=== PATIENT | female | born 1950 | race Caucasian/White ===

== ENCOUNTER → 2016-06-29 | Outpatient (CLI) | payer OTHER ==
--- NOTE | 2016-06-30 13:46 | MM ---
Reason for exam: screening (asymptomatic). Last mammogram was performed 1 year and 1 month ago. History: Patient is postmenopausal and is nulliparous. Family history of breast cancer in sister at age 58. Took estrogen for 12 years. Physical Findings: A clinical breast exam by your physician is recommended on an annual basis and results should be correlated with mammographic findings. MG Screening Mammo w CAD Bilateral CC and MLO view(s) were taken. Prior study comparison: June 14, 2015, bilateral MG screening mammo w CAD. May 22, 2014, mammogram, performed at [place]. May 16, 2013, mammogram, performed at [place]. The breast tissue is heterogeneously dense. This may lower the sensitivity of mammography. Questionable architectural distortion lateral left breast versus summation density. ASSESSMENT: Incomplete: need additional imaging evaluation, BI-RAD 0 RECOMMENDATION: Special view mammogram of the left breast. If lesion persists on supplemental views, image directed ultrasound is recommended. [facility] will attempt to contact patient to return for supplemental views and ultrasound if indicated. DOMINGUEZ
== END | disposition home or self-care (01) ==
LOC: RADMAMWWP 11:20
PROVIDERS: ATTEND Family Medicine
DX: Z12.31 Encounter for screening mammogram for malignant neoplasm of breast (principal)

== ENCOUNTER → 2016-07-08 | Outpatient (CLI) | payer OTHER ==
--- NOTE | 2016-07-08 14:21 | MM ---
Reason for exam: additional evaluation requested from abnormal screening. Last mammogram was performed less than 1 month ago. History: Patient is postmenopausal and is nulliparous. Family history of breast cancer in sister at age 58. Took estrogen for 12 years. Physical Findings: Nurse did not find any significant physical abnormalities on exam. MG Work Up Mamm w CAD LT LM, spot compression CC, and spot compression XCCL view(s) were taken of the left breast. Prior study comparison: June 29, 2016, bilateral MG screening mammo w CAD. June 14, 2015, bilateral MG screening mammo w CAD. May 22, 2014, mammogram, performed at [place]. The breast tissue is heterogeneously dense. This may lower the sensitivity of mammography. There is persistence of questionable distortion upper outer quadrant in the left breast on additional view. These results were verbally communicated with the patient and result sheet given to the patient on 07/08/16. ASSESSMENT: Incomplete: need additional imaging evaluation, BI-RAD 0 RECOMMENDATION: Ultrasound of the left breast. (upper outer quadrant)
--- NOTE | 2016-07-08 14:23 | USB ---
Reason for exam: additional evaluation requested from abnormal screening. History: Patient is postmenopausal and is nulliparous. Family history of breast cancer in sister at age 58. Took estrogen for 12 years. US Breast Workup Limited LT Left breast ultrasound demonstrates no cystic or solid lesion seen. The mammographic finding can be reassessed in 6 months. These results were verbally communicated with the patient and result sheet given to the patient on 07/08/16. ASSESSMENT: Probably benign, BI-RAD 3 RECOMMENDATION: Follow-up diagnostic mammogram of the left breast in 6 months.
== END | disposition home or self-care (01) ==
LOC: RADMAMWWP 13:21
PROVIDERS: ATTEND Family Medicine
DX: R92.8 Other abnormal and inconclusive findings on diagnostic imaging of breast (principal); Z80.3 Family history of malignant neoplasm of breast
CPT/HCPCS: 76642; G0206

== ENCOUNTER → 2016-12-30 | Outpatient (CLI) | payer MEDICARE ==
--- NOTE | 2016-12-30 11:40 | MM ---
Reason for exam: follow-up at short interval from prior study. Last mammogram was performed 6 months ago. History: Patient is postmenopausal and is nulliparous. Family history of breast cancer in sister at age 58. Took estrogen for 12 years. Physical Findings: Nurse did not find any significant physical abnormalities on exam. MG 3D Diag Mammo W/Cad LT CC, MLO, and ML view(s) were taken of the left breast. Prior study comparison: July 08, 2016, left breast MG work up mamm w CAD LT. June 29, 2016, bilateral MG screening mammo w CAD. The breast tissue is heterogeneously dense. This may lower the sensitivity of mammography. Persistent upper outer quadrant left architectural distortion is unchanged and likely due to remote excision. No new mass. These results were verbally communicated with the patient and result sheet given to the patient on 12/30/16. ASSESSMENT: Probably benign, BI-RAD 3 RECOMMENDATION: Follow-up diagnostic mammogram of both breasts in 6 months. Back on schedule.
== END | disposition home or self-care (01) ==
LOC: RADMAMWWP 10:39
PROVIDERS: ATTEND Family Medicine
DX: R92.8 Other abnormal and inconclusive findings on diagnostic imaging of breast (principal)
CPT/HCPCS: G0206; G0279

== ENCOUNTER → 2017-07-01 | Outpatient (CLI) | payer MEDICARE ==
--- NOTE | 2017-07-01 11:13 | MM ---
Reason for exam: follow-up at short interval from prior study. Last mammogram was performed 6 months ago. History: Patient is postmenopausal and is nulliparous. Family history of breast cancer in sister at age 58. Benign excisional biopsy of the left breast, 1989. Took estrogen for 12 years. Physical Findings: Nurse did not find any significant physical abnormalities on exam. MG 3D Diag Mammo W/Cad [facility] Bilateral CC and MLO view(s) were taken. Prior study comparison: December 30, 2016, left breast MG 3d diag mammo w/cad LT. July 08, 2016, left breast MG work up mamm w CAD LT. June 14, 2015, bilateral MG screening mammo w CAD. May 22, 2014, mammogram, performed at [place]. Lateral left breast asymmetry no longer seen. No significant new findings when compared with previous films. These results were verbally communicated with the patient and result sheet given to the patient on 07/01/17. ASSESSMENT: Negative, BI-RAD 1 RECOMMENDATION: Routine screening mammogram of both breasts in 1 year.
== END | disposition home or self-care (01) ==
LOC: RADMAMWWP 09:52
PROVIDERS: ATTEND Family Medicine
DX: R92.8 Other abnormal and inconclusive findings on diagnostic imaging of breast (principal)
CPT/HCPCS: 77066; G0279

== ENCOUNTER → 2018-07-27 | Outpatient (CLI) | payer MEDICARE ==
--- NOTE | 2018-07-28 13:57 | MM ---
Reason for exam: screening (asymptomatic). Last mammogram was performed 1 year and 1 month ago. History: Patient is postmenopausal and is nulliparous. Family history of breast cancer in sister at age 58. Benign excisional biopsy of the left breast, 1989. Took estrogen for 12 years. Physical Findings: A clinical breast exam by your physician is recommended on an annual basis and results should be correlated with mammographic findings. MG 3D Screening Mammo W/Cad Bilateral CC and MLO view(s) were taken. Prior study comparison: July 01, 2017, bilateral MG 3d diag mammo w/cad [facility]. December 30, 2016, left breast MG 3d diag mammo w/cad LT. The breast tissue is extremely dense which could obscure a lesion on mammography. Benign appearing bilateral calcifications. No suspicious abnormality. Post surgical change on the left. No significant changes when compared with prior studies. ASSESSMENT: Benign, BI-RAD 2 RECOMMENDATION: Routine screening mammogram of both breasts in 1 year.
== END | disposition home or self-care (01) ==
LOC: RADMAMWWP 09:48
PROVIDERS: ATTEND Family Medicine
DX: Z12.31 Encounter for screening mammogram for malignant neoplasm of breast (principal)
CPT/HCPCS: 77063; 77067

== ENCOUNTER 2018-08-01 08:39 | Day surgery (SDC) | payer MEDICARE ==
[2018-07-27 15:36] VITALS: BMI 20.9
[~2018-08-01 08:39] MED LIST: LACTATED RINGERS 1,000 ML IV SCH; LIDOCAINE 1% 20 ML VIAL (10MG/ML) FOR IV START INTRADERMA PRN
[2018-08-01 09:01] VITALS: RESP 16; TEMP 97.4
[2018-08-01] MEDS ORDERED: MIDAZOLAM 2 MG/2 ML VIAL ONE (09:50)
[2018-08-01] MEDS ORDERED: PROPOFOL 10 MG/ML 20 ML VIAL IV ONE (09:50)
[2018-08-01] MEDS ORDERED: LIDOCAINE 1% INJ 10MG/ML (20 ML MDV) ONE (09:50)
--- NOTE | 2018-08-01 10:33 | P.PCN ---
Date of Procedure: 08/01/18 Procedure(s) Performed: Procedure: Colonoscopy and biopsy. Preoperative diagnosis: History of colitis with recent exacerbation of symptoms. Postoperative diagnosis: 1. Mild scattered edema and erythema of the colon with no significant other findings or bleeding. 2. Biopsies obtained from the terminal ileum and randomly from the colon. Preparation: HalfLytely prep. Sedation: Was provided by anesthesia. Brief clinical history: The patient is 67-year-old female with history of colitis that was diagnosed more than 8 years ago. She has required steroids and Remicade in the past. She has lived in [place] and in [place] in the past. She moved to this area around 4 years ago she was in remission on no medications. She, apparently, has been troubled with diarrhea and urgent bowel movements for the last 4-5 months and has required Entocort therapy until 1 week ago. She has been doing well for the last week. Procedure: With the patient on her left lateral decubitus position and after informed consent and adequate sedation, the perianal area was inspected and it did not show any fissures or fistulas. There were no masses felt on digital rectal examination. The Olympus CFH 190L video colonoscope was then inserted in the rectum in the usual fashion and advanced to the cecum. I intubated the ileocecal valve and examined the terminal ileum. Terminal ileum and colon appeared healthy with the only finding of patches of mild edema and erythema in the colon more so on the right side with no ulceration, exudation or spontaneous bleeding. No polyps or tumors were seen or any obvious diverticular disease or other pathology. I obtained biopsies from the terminal ileum and randomly from the colon then I retroflexed the endoscope in the rectum before the endoscope was withdrawn. The patient tolerated the procedure well. Plan: The patient was reassured. Will await pathology results. She will follow-up with you as planned and further plans will be made based on her course and biopsy results. I will be happy to see in the office of her symptoms recur.
[2018-08-01 10:39] VITALS: BP 118/74; PULSE 72
== END 2018-08-01 11:16 | disposition home or self-care (01) ==
LOC: ORWHC2ENDO 08:39
DX: K52.9 Noninfective gastroenteritis and colitis, unspecified (principal); I10 Essential (primary) hypertension; G43.909 Migraine, unspecified, not intractable, without status migrainosus; Z87.891 Personal history of nicotine dependence; E07.9 Disorder of thyroid, unspecified; Z79.890 Hormone replacement therapy; Z79.899 Other long term (current) drug therapy
CPT/HCPCS: 88305; 45380; J2250; J2001; J2704

== ENCOUNTER → 2019-03-30 | Outpatient (CLI) | payer MEDICARE ==
--- NOTE | 2019-03-30 11:38 | MM ---
Reason for exam: clinical finding. Last mammogram was performed 8 months ago. History: Patient is postmenopausal and is nulliparous. Family history of breast cancer in sister at age 58. Benign excisional biopsy of the left breast, 1989. Took estrogen for 12 years. Physical Findings: Nurse did not find any significant physical abnormalities on exam. MG 3D Diag Mammo W/Cad LT CC and MLO view(s) were taken of the left breast. Prior study comparison: July 27, 2018, bilateral MG 3d screening mammo w/cad. July 01, 2017, bilateral MG 3d diag mammo w/cad [facility]. The breast tissue is heterogeneously dense. This may lower the sensitivity of mammography. Benign appearing calcifications in the left breast. No suspicious abnormality. Post excisional change on the left. These results were verbally communicated with the patient and result sheet given to the patient on 03/30/19. ASSESSMENT: Benign, BI-RAD 2 RECOMMENDATION: Return to routine screening mammogram schedule for both breasts. Back on schedule for June 2019. Manage patient on a clinical basis.
== END | disposition home or self-care (01) ==
LOC: RADMAMWWP 10:12
PROVIDERS: ATTEND Family Medicine
DX: N64.4 Mastodynia (principal)
CPT/HCPCS: 77061; 77065

== ENCOUNTER → 2019-10-23 | Outpatient (CLI) | payer MEDICARE ==
--- NOTE | 2019-10-23 12:15 | CT ---
EXAMINATION TYPE: CT orbits wo con DATE OF EXAM: 10/23/2019 COMPARISON: None HISTORY: Thyrotoxicosis w/diffuse goiter w/out CT DLP: 404 mGycm Automated exposure control for dose reduction was used. Unenhanced CT of the orbits was performed in the axial and coronal planes with bone and soft tissue window settings submitted. FINDINGS: There is severe bilateral proptosis measuring 22 mm on the right and 21 mm on the left with measureme nt from the interzygomatic line to the posterior sclera. Mild thickening of the bellies of the medial rectus musculature. The remaining extraocular musculature and does not appear to be thickened. No ev idence for intra or extraconal mass. Optic nerves appear symmetric. Paranasal sinuses are unremarkabl e. IMPRESSION: BILATERAL SEVERE PROPTOSIS NOTED.
== END | disposition home or self-care (01) ==
LOC: RADCTMAIN 11:33
PROVIDERS: ATTEND Ophthalmology Ophthalmic Plastic and Reconstructive Surgery
DX: H05.20 Unspecified exophthalmos (principal); E05.00 Thyrotoxicosis with diffuse goiter without thyrotoxic crisis or storm
CPT/HCPCS: 70480

== ENCOUNTER → 2020-07-19 | Outpatient (CLI) | payer MEDICARE ==
--- NOTE | 2020-07-19 14:28 | US ---
EXAMINATION TYPE: US axilla LT DATE OF EXAM: 07/19/2020 COMPARISON: NONE CLINICAL HISTORY: L04.9 Lymphadenitis. Left axilla palpable and painful area x 3 weeks, covid vaccine left arm 8 weeks ago Left axilla: 2.0 x 0.7 x 0.9cm lymph node seen IMPRESSION: Mildly prominent left axillary lymph node.
== END | disposition home or self-care (01) ==
LOC: RADUSWWP 13:31
PROVIDERS: ATTEND Family Medicine
DX: R59.0 Localized enlarged lymph nodes (principal)

== ENCOUNTER → 2020-08-09 | Outpatient (CLI) | payer MEDICARE ==
--- NOTE | 2020-08-09 10:14 | US ---
EXAMINATION TYPE: US axilla LT DATE OF EXAM: 08/09/2020 COMPARISON: 07/19/2020 CLINICAL HISTORY: L04.9 Lymphadenitis. left axilla palpable for 6 weeks. covid vaccine left arm 11 w eeks ago. prior exam 07/19/20 lymph nodes left axilla with largest = 1.9 x 0.8 x 1.3cm There has been no interval change in the mildly prominent left axillary lymph node. No new abnormalit y seen. IMPRESSION: No change in the mildly prominent left axillary lymph node.
== END | disposition home or self-care (01) ==
LOC: RADUSWWP 09:26
PROVIDERS: ATTEND Family Medicine
DX: R59.0 Localized enlarged lymph nodes (principal)

== ENCOUNTER → 2020-09-20 | Outpatient (CLI) | payer MEDICARE ==
--- NOTE | 2020-09-25 11:15 | MM ---
Reason for exam: screening (asymptomatic). Last mammogram was performed 1 year and 6 months ago. History: Patient is postmenopausal and is nulliparous. Family history of breast cancer in sister at age 58. Benign excisional biopsy of the left breast, 1989. Took estrogen for 12 years. Physical Findings: A clinical breast exam by your physician is recommended on an annual basis and results should be correlated with mammographic findings. MG 3D Screening Mammo W/Cad Bilateral CC and MLO view(s) were taken. Prior study comparison: March 30, 2019, left breast MG 3d diag mammo w/cad LT. July 27, 2018, bilateral MG 3d screening mammo w/cad. The breast tissue is heterogeneously dense. This may lower the sensitivity of mammography. Benign calcifications bilaterally. ASSESSMENT: Benign, BI-RAD 2 RECOMMENDATION: Routine screening mammogram of both breasts in 1 year.
== END | disposition home or self-care (01) ==
LOC: RADMAMWWP 13:29
PROVIDERS: ATTEND Family Medicine
DX: Z12.31 Encounter for screening mammogram for malignant neoplasm of breast (principal)
CPT/HCPCS: 77063; 77067

== ENCOUNTER → 2021-12-09 | Outpatient (CLI) | payer MEDICARE ==
--- NOTE | 2021-12-09 11:58 | BD ---
EXAMINATION TYPE: Axial Bone Density DATE OF EXAM: 12/09/2021 COMPARISON: NONE CLINICAL HISTORY: 71 years year old Female. ICD-10 CODE: Z78.0 ASYMPTOMATIC MENOPAUSAL STATE Height: 5'6 Weight: 128 FRAX RISK QUESTIONS: History of Fracture in Adulthood: y Secondary Osteoporosis: 3. Menopause before 45: y Rheumatoid Arthritis: y RISK FACTORS HISTORY OF: Surgery to Spine: c3-4 When: 2011 Postmenopausal woman: MEDICATIONS: Thyroid Medications: Which medication: Synthroid How Lon years Additional Medications: depression, muscle relaxer, migraines, sleep, Additional History: EXAM MEASUREMENTS: Bone mineral densitometry was performed using the [employer] System. Bone mineral density as measured about the Lumbar spine is: ----- L1-L4(G/cm2): 1.322 T Score Values are as follows: ----- L1: -1.1 ----- L2: 2.5 ----- L3: 4.2 ----- L4: -0.8 ----- L1-L4: 1.2 Bone mineral density about the R hip (g/cm2): 0.828 Bone mineral density about the L hip (g/cm2): 0.852 T Score values are as follow -----R Neck: -1.5 -----L Neck: -1.3 -----R Total: -1.4 -----L Total: -1.2 FRAX%s: The graph provided illustrates a 14.1% chance for a major osteoporotic fx and a 2.2% chance f or the hips probability for fx in 10 years time IMPRESSION: Osteopenia (T Score between -2.5 and -1). There is slightly increased risk of fracture and the patient may be considered for treatment. Re-Screen 2-5 years. NOTE: T-SCORE=SD OF THE YOUNG ADULT MEAN.
== END | disposition home or self-care (01) ==
LOC: RADBDWWP 08:57
PROVIDERS: ATTEND Family Medicine
DX: Z12.31 Encounter for screening mammogram for malignant neoplasm of breast (principal); Z78.0 Asymptomatic menopausal state
CPT/HCPCS: 77063; 77067; 77080

== ENCOUNTER → 2022-09-30 | Outpatient (CLI) | payer MEDICARE ==
--- NOTE | 2022-09-30 16:07 | P.SLEEP ---
History of Present Illness DATE: 09/30/2022 CONSULTATION/NEW PATIENT EVALUATION HISTORY OF PRESENT ILLNESS/SLEEP-WAKE EVALUATION: 72-year-old lady had been ev aluated in the sleep center for insomnia. SLEEP SCHEDULE: Usually sleep schedule patient usually goes to bed around 9:30, falling asleep around 11 and get out of bed in the morning at 8 AM. FALLING ASLEEP: Patient has difficulties with the falling to sleep. No TV in bedroom. DURING SLEEP: Patient usually sleeps on the side position by himself, no information about snoring, according to patient no history of snoring. Patient wakes up from sleep up to 4 times with nocturia. No history of hypnogogical hallucinations, sleep paralysis, or cataplexy. DURING THE DAY/WAKE STATE: Patient orally about his sleep. [place] sleepiness scale is 0. Patient doesn't take any naps. PAST MEDICAL HISTORY: Hypertension, hypothyroidism, headaches some of them started in the morning after awakenings from sleep, anxiety, hypothyroidism. PAST SURGICAL HISTORY: C3-C4 laminectomy with fusion, radioactive iodine treatment. MEDICATIONS: Hydrochlorothiazide 25 mg once a day, Synthroid 88 g once a day, T rileptal 1 at bedtime, Valium 5 mg once a day, Imitrex 50 mg once a day. SOCIAL HISTORY: Positive history of smoking in the past quit more than 20 years ago, alcohol consumption occasional. FAMILY HISTORY: Hypertension, heart problems, stroke, asthma, cancer, restless leg symptoms. REVIEW OF SYSTEMS: Difficulties to initiate sleep, multiple awakenings from sleep. No fevers. No double vision. No recent chest pain. No shortness of breath. No abdominal pain. No bleeding episodes. No blood in urine. No seizure episodes. PHYSICAL EXAMINATION: GENERAL: A pleasant patient without any distress. VITAL SIGNS: BP 167/85, HR 61, RR 16, weight 133.6 pounds, height 5 foot 5.25 inches, body mass index 21.9. HEENT: PERRLA, EOMI. Evaluation of oropharynx showed tongue protrudes midline, low position of soft palate Mallampati 2, distance between soft palate and posterior pharyngeal wall. Retrognathia about 3 mm. NECK: Supple. No JVD. Thyroid is not palpable. 14 inches in circumference. LUNGS: Clear to percussion and to auscultation. Good air exchange. No wheezing or rhonchi. HEART: S1, S2 regular. No murmurs, gallops or rubs. ABDOMEN: Soft and nontender. Bowel sounds are present. No organomegaly appreciated. EXTREMITIES: No clubbing or cyanosis. DRAMATIC COACH: Awake, alert, and oriented x3. Cranial nerves 2 to 7 intact. There is no fasciculation or atrophy noted. No focal deficits observed. ASSESSMENT: 1. Difficulties to initiate sleep, psychophysiological insomnia and insomnia secondary to anxiety. 2. Multiple awakenings from sleep, retrognathia, slightly small oropharyngeal airspace. Possible obstructive sleep apnea hypopnea syndrome. 3. Hypertension. 4. Headaches, some after awakenings from sleep. 5 hypothyroidism secondary to treatment with radioactive iodine. 6 . Anxiety. 7. Status post C3-C4 laminectomy with fusion. PLAN: 1. I discussed with patient psychological techniques for treatment of insomnia including stimulus control, paradoxical intentione, worry time. Patient will arrange sleep schedule time of staying in bed for around 7-1/2 hours, presently she is staying in bed for about 10.5 hours. No watching clock. 2. No any caffeine during the day 3. I explained to the patient necessity to proceed with the polysomnogram for evaluation of her breathing during the sleep. For patient with insomnia home sleep apnea test will not be reliable choice of evaluation for JASON. 4. No driving if patient feels any sleepiness. 5. Sleep hygiene with regular sleep time for 7.5 hours. 6. Follow-up visit in several months. Thank you very much for referring this patient for consultation. Sincerely, Maury Marie MD, PhD, FAASM. Diplomat of [place] [employer], Sleep Medicine Board by [place] [employer] [place] [employer] [facility] [place] Medications and Allergies Home Medications Medication Instructions Recorded Confirmed Type Butalb/Acetaminophen/Caffeine 1 - 2 cap PO Q4HR PRN 07/27/18 08/01/18 History [Fioricet 50-300-40 mg Capsule] Escitalopram [Lexapro] 10 mg PO DAILY 07/27/18 08/01/18 History Levothyroxine Sodium [Synthroid] 50 mcg PO MOTUTHFRSA 07/27/18 08/01/18 History Levothyroxine Sodium [Synthroid] 100 mcg PO SUWE 07/27/18 08/01/18 History SUMAtriptan succinate [Imitrex] 50 mg PO ONCE PRN 07/27/18 08/01/18 History Zolpidem [Ambien] 10 mg PO HS 07/27/18 08/01/18 History cycloSPORINE [Restasis] 1 drop BOTH EYES DAILY 07/27/18 08/01/18 History hydroCHLOROthiazide [Hydrodiuril] 12.5 mg PO DAILY 07/27/18 08/01/18 History Allergies Allergy/AdvReac Type Severity Reaction Status Date / Time No Known Allergies Allergy Verified 08/01/18 09:01 Sleep Note - Sleep Note Sleep Note: Temperature: Pulse Rate: Respiratory Rate: Blood Pressure: SpO2: Height: Weight: BMI: Neck Circumference:
== END ==
LOC: 3 N SLEEP 15:00
PROVIDERS: ATTEND Internal Medicine
DX: G47.33 Obstructive sleep apnea (adult) (pediatric) (principal); I10 Essential (primary) hypertension; R51.9 Headache, unspecified; Z98.890 Other specified postprocedural states; E03.9 Hypothyroidism, unspecified; F41.9 Anxiety disorder, unspecified; Z99.89 Dependence on other enabling machines and devices; Z79.890 Hormone replacement therapy; Z87.891 Personal history of nicotine dependence
CPT/HCPCS: 99211

== ENCOUNTER → 2023-12-27 | Outpatient (CLI) | payer MEDICARE ==
--- NOTE | 2023-12-28 09:17 | MM ---
Reason for Exam: Screening (asymptomatic). Last screening mammogram was performed 12 month(s) ago. Patient History: Menarche at age 13. Patient has no children. Postmenopausal. Patient used Estrogen for 12 years. 1989, Benign Excisional Biopsy on the left side. Sister had breast cancer, age 58. Sister had ovarian cancer, age 57. Risk Values: Adelaide 5 year model risk: 4.1%. NCI Lifetime model risk: 10.4%. Prior Study Comparison: 09/20/2020 Bilateral Screening Mammogram, [facility]. 12/09/2021 Bilateral MG 3D screening mammo w/cad, [facility]. 12/23/2022 Bilateral MG 3D screening mammo w/cad, [facility]. Tissue Density: The breasts are heterogeneously dense, which may obscure small masses. Findings: Analyzed By CAD. There is no suspicious group of microcalcifications or new suspicious mass in either breast. Overall Assessment: Benign, BI-RAD 2 Management: Screening Mammogram of both breasts in 1 year. . Patient should continue monthly self-breast exams. A clinical breast exam by your physician is recommended on an annual basis. This exam should not preclude additional follow-up of suspicious palpable abnormalities. Note on Adelaide scores and lifetime risk: 1. A Adelaide score greater than 3% is considered moderate risk. If this is the case, consider specialist referral to assess eligibility for a risk reducing agent. 2. If overall lifetime risk for the development of breast cancer is 20% or higher, the patient may qualify for future screening with alternating mammogram and breast MRI. [facility], , 12/28/2023 9:14 AM. Electronically signed and approved by: Yonas Marroquin M.D. [facility]
== END | disposition home or self-care (01) ==
LOC: RADMAMWWP 12:27
PROVIDERS: ATTEND Family Medicine
CPT/HCPCS: 77063; 77067